=== PATIENT | female | born 1975 | race Caucasian/White ===

== ENCOUNTER 2017-12-22 09:30 | Day surgery (SDC) | payer OTHER ==
[2017-12-22] MEDS ORDERED: MIDAZOLAM 1 MG/ML 2 ML INJ ×2 (11:58)
[2017-12-22] MEDS ORDERED: FENTAnyl 50 MCG/ML VIAL (11:58)
== END 2017-12-22 13:00 | disposition home or self-care (01) ==
LOC: GIL 09:30
DX: K29.70 Gastritis, unspecified, without bleeding (principal); K64.8 Other hemorrhoids; I10 Essential (primary) hypertension
CPT/HCPCS: 43239; 84703; 87081